=== PATIENT | male | born 1975 ===

== ENCOUNTER 2017-09-09 15:35 | Emergency (ER) | payer MEDICAID ==
[2017-09-09 16:32] LABS: Basophils # (Auto) 0.1 K/mm3 (0.0-0.1); Basophils % (Auto) 0.7 % (0.0-1.8); Eosinophils # (Auto) 0.5 K/mm3 (0.0-0.4); Eosinophils % (Auto) 4.8 % (0.0-4.3); Hematocrit 40.9 % (35.5-45.6); Hemoglobin 13.5 gm/dl (11.8-15.2); Lymphocytes # (Auto) 3.5 K/mm3 (1.2-5.4); Lymphocytes % (Auto) 36.3 % (13.4-35.0); Mean Corpuscular HGB Conc 33 % (32-34); Mean Corpuscular Hemoglobin 32 pg (28-32); Mean Corpuscular Volume 97 fl (84-94); Monocytes # (Auto) 1.1 K/mm3 (0.0-0.8); Monocytes % (Auto) 11.8 % (0.0-7.3); Platelet Count 181 K/mm3 (140-440); Red Blood Count 4.24 M/mm3 (3.65-5.03); Red Cell Distribution Width 13.8 % (13.2-15.2)
[2017-09-09 16:51] LABS: BUN/Creatinine Ratio 17; Blood Urea Nitrogen 17 mg/dL (9-20); Calcium 8.8 mg/dL (8.4-10.2); Hemolysis Index 8
[2017-09-09 16:51] LABS: Bilirubin,Urine NEG (Negative); Blood,Urine NEG (Negative); Color,Urine Yellow (Yellow); Protein,Urine <15 mg/dL mg/dL (Negative); Urobilinogen,Urine < 2.0 mg/dL (<2.0); WBC,Urine < 1.0 /HPF (0.0-6.0)
[2017-09-09 17:14] LABS: Amphetamine Screen,Urine PRESUMPTIVE NEGATIVE; Benzodiazepines Screen,Urine PRESUMPTIVE NEGATIVE; Cannabinoid Screen,Urine PRESUMPTIVE NEGATIVE; Cocaine Screen,Urine PRESUMPTIVE NEGATIVE; Opiate Screen,Urine PRESUMPTIVE NEGATIVE
[2017-09-09 17:27] LABS: Methadone Screen,Urine PRESUMPTIVE POSITIVE
[2017-09-09] MEDS ORDERED: ATIVAN PO ONE (17:58)
[2017-09-09] MEDS ORDERED: NORCO 5/325 PO ONE (17:58)
--- NOTE | 2017-09-09 20:12 | Emergency Department Report ---
ED Psych HPI - General Chief Complaint: Psych Stated Complaint: MH/1013 Time Seen by Provider: 09/09/17 16:26 Source: patient Mode of arrival: Ambulatory - History of Present Illness Initial Comments: Patient is a 41-year-old male who is presenting with anxiety and suicidal ideations. Patient states before arrival he was feeling very anxious and was having thoughts of hanging himself. Patient was sent in for evaluation. The patient is here he stated that he no longer feels suicidal but is very anxious and would like to be placed in a treatment facility. Patient also is complaining of aching chronic pain in the neck secondary to spinal stenosis and as well as in his legs secondary to chronic injury. His pains or 8 out 10 in severity according to the patient but are chronic. Patient denies any homicidal or suicidal ideations at this time. - Related Data Allergies Allergy/AdvReac Type Severity Reaction Status Date / Time Penicillins Allergy Rash Verified 09/09/17 15:49 ED Review of Systems ROS: Stated complaint: MH/1013 Other details as noted in HPI Comment: All other systems reviewed and negative ED Past Medical Hx - Past Medical History Previous Medical History?: Yes Additional medical history: cervical spine stenosis, - Social History Smoking Status: Current Every Day Smoker Substance Use Type: None ED Physical Exam - General Limitations: No Limitations General appearance: alert, in no apparent distress - Head Head exam: Present: atraumatic, normocephalic - Eye Eye exam: Present: normal appearance - ENT ENT exam: Present: mucous membranes moist - Neck Neck exam: Present: normal inspection - Respiratory Respiratory exam: Present: normal lung sounds bilaterally. Absent: respiratory distress, wheezes, rales, rhonchi - Cardiovascular Cardiovascular Exam: Present: regular rate, normal rhythm. Absent: systolic murmur, diastolic murmur, rubs, gallop - GI/Abdominal GI/Abdominal exam: Present: soft, normal bowel sounds - Rectal Rectal exam: Present: deferred - Extremities Exam Extremities exam: Present: normal inspection - Back Exam Back exam: Present: normal inspection - Neurological Exam Neurological exam: Present: alert, oriented X3 - Psychiatric Psychiatric exam: Present: normal affect, normal mood - Skin Skin exam: Present: warm, dry, intact, normal color. Absent: rash ED Course Vital Signs 09/09/17 09/09/17 15:56 16:12 Temperature 98.6 F Pulse Rate 92 H Respiratory 18 18 Rate Blood Pressure 109/62 [Left] O2 Sat by Pulse 96 Oximetry ED Medical Decision Making - Lab Data Result diagrams: 09/09/17 16:00 09/09/17 16:00 Lab Results 09/09/17 09/09/17 09/09/17 Range/Units 16:00 16:00 16:00 WBC (4.5-11.0) K/mm3 RBC (3.65-5.03) M/mm3 Hgb (11.8-15.2) gm/dl Hct (35.5-45.6) % MCV (84-94) fl MCH (28-32) pg MCHC (32-34) % RDW (13.2-15.2) % Plt Count (140-440) K/mm3 Lymph % (Auto) (13.4-35.0) % [place] % (Auto) (0.0-7.3) % Eos % (Auto) (0.0-4.3) % Baso % (Auto) (0.0-1.8) % Lymph # (1.2-5.4) K/mm3 [place] # (0.0-0.8) K/mm3 Eos # (0.0-0.4) K/mm3 Baso # (0.0-0.1) K/mm3 Seg Neutrophils % (40.0-70.0) % Seg Neutrophils # (1.8-7.7) K/mm3 Sodium 138 (137-145) mmol/L Potassium 4.3 (3.6-5.0) mmol/L Chloride 96.7 L (98-107) mmol/L Carbon Dioxide 30 (22-30) mmol/L Anion Gap 16 mmol/L BUN 17 (9-20) mg/dL Creatinine 1.0 (0.8-1.5) mg/dL Estimated GFR > 60 ml/min BUN/Creatinine Ratio 17 % Glucose 65 L (75-100) mg/dL Calcium 8.8 (8.4-10.2) mg/dL Urine Color (Yellow) Urine Turbidity (Clear) Urine pH (5.0-7.0) Ur Specific [place] (1.003-1.030) Urine Protein (Negative) mg/dL Urine Glucose (UA) (Negative) mg/dL Urine Ketones (Negative) mg/dL Urine Blood (Negative) Urine Nitrite (Negative) Urine Bilirubin (Negative) Urine Urobilinogen (<2.0) mg/dL Ur Leukocyte Esterase (Negative) Urine WBC (Auto) (0.0-6.0) /HPF Urine RBC (Auto) (0.0-6.0) /HPF Salicylates < 0.3 L (2.8-20.0) mg/dL Urine Opiates Screen Urine Methadone Screen Acetaminophen < 5.0 L (10.0-30.0) ug/mL Ur Barbiturates Screen Ur Phencyclidine Scrn Ur Amphetamines Screen U Benzodiazepines Scrn Urine Cocaine Screen U Marijuana (THC) Screen Drugs of Abuse Note Plasma/Serum Alcohol (0-0.07) % 09/09/17 09/09/17 09/09/17 Range/Units 16:00 16:00 16:04 WBC 9.5 (4.5-11.0) K/mm3 RBC 4.24 (3.65-5.03) M/mm3 Hgb 13.5 (11.8-15.2) gm/dl Hct 40.9 (35.5-45.6) % MCV 97 H (84-94) fl MCH 32 (28-32) pg MCHC 33 (32-34) % RDW 13.8 (13.2-15.2) % Plt Count 181 (140-440) K/mm3 Lymph % (Auto) 36.3 H (13.4-35.0) % [place] % (Auto) 11.8 H (0.0-7.3) % Eos % (Auto) 4.8 H (0.0-4.3) % Baso % (Auto) 0.7 (0.0-1.8) % Lymph # 3.5 (1.2-5.4) K/mm3 [place] # 1.1 H (0.0-0.8) K/mm3 Eos # 0.5 H (0.0-0.4) K/mm3 Baso # 0.1 (0.0-0.1) K/mm3 Seg Neutrophils % 46.4 (40.0-70.0) % Seg Neutrophils # 4.4 (1.8-7.7) K/mm3 Sodium (137-145) mmol/L Potassium (3.6-5.0) mmol/L Chloride (98-107) mmol/L Carbon Dioxide (22-30) mmol/L Anion Gap mmol/L BUN (9-20) mg/dL Creatinine (0.8-1.5) mg/dL Estimated GFR ml/min BUN/Creatinine Ratio % Glucose (75-100) mg/dL Calcium (8.4-10.2) mg/dL Urine Color Yellow (Yellow) Urine Turbidity Clear (Clear) Urine pH 6.0 (5.0-7.0) Ur Specific [place] 1.011 (1.003-1.030) Urine Protein <15 mg/dl (Negative) mg/dL Urine Glucose (UA) Neg (Negative) mg/dL Urine Ketones Neg (Negative) mg/dL Urine Blood Neg (Negative) Urine Nitrite Neg (Negative) Urine Bilirubin Neg (Negative) Urine Urobilinogen < 2.0 (<2.0) mg/dL Ur Leukocyte Esterase Neg (Negative) Urine WBC (Auto) < 1.0 (0.0-6.0) /HPF Urine RBC (Auto) 1.0 (0.0-6.0) /HPF Salicylates (2.8-20.0) mg/dL Urine Opiates Screen Urine Methadone Screen Acetaminophen (10.0-30.0) ug/mL Ur Barbiturates Screen Ur Phencyclidine Scrn Ur Amphetamines Screen U Benzodiazepines Scrn Urine Cocaine Screen U Marijuana (THC) Screen Drugs of Abuse Note Plasma/Serum Alcohol < 0.01 (0-0.07) % 09/09/17 Range/Units 16:04 WBC (4.5-11.0) K/mm3 RBC (3.65-5.03) M/mm3 Hgb (11.8-15.2) gm/dl Hct (35.5-45.6) % MCV (84-94) fl MCH (28-32) pg MCHC (32-34) % RDW (13.2-15.2) % Plt Count (140-440) K/mm3 Lymph % (Auto) (13.4-35.0) % [place] % (Auto) (0.0-7.3) % Eos % (Auto) (0.0-4.3) % Baso % (Auto) (0.0-1.8) % Lymph # (1.2-5.4) K/mm3 [place] # (0.0-0.8) K/mm3 Eos # (0.0-0.4) K/mm3 Baso # (0.0-0.1) K/mm3 Seg Neutrophils % (40.0-70.0) % Seg Neutrophils # (1.8-7.7) K/mm3 Sodium (137-145) mmol/L Potassium (3.6-5.0) mmol/L Chloride (98-107) mmol/L Carbon Dioxide (22-30) mmol/L Anion Gap mmol/L BUN (9-20) mg/dL Creatinine (0.8-1.5) mg/dL Estimated GFR ml/min BUN/Creatinine Ratio % Glucose (75-100) mg/dL Calcium (8.4-10.2) mg/dL Urine Color (Yellow) Urine Turbidity (Clear) Urine pH (5.0-7.0) Ur Specific [place] (1.003-1.030) Urine Protein (Negative) mg/dL Urine Glucose (UA) (Negative) mg/dL Urine Ketones (Negative) mg/dL Urine Blood (Negative) Urine Nitrite (Negative) Urine Bilirubin (Negative) Urine Urobilinogen (<2.0) mg/dL Ur Leukocyte Esterase (Negative) Urine WBC (Auto) (0.0-6.0) /HPF Urine RBC (Auto) (0.0-6.0) /HPF Salicylates (2.8-20.0) mg/dL Urine Opiates Screen Presumptive negative Urine Methadone Screen Presumptive positive Acetaminophen (10.0-30.0) ug/mL Ur Barbiturates Screen Presumptive negative Ur Phencyclidine Scrn Presumptive negative Ur Amphetamines Screen Presumptive negative U Benzodiazepines Scrn Presumptive negative Urine Cocaine Screen Presumptive negative U Marijuana (THC) Screen Presumptive negative Drugs of Abuse Note Disclamer Plasma/Serum Alcohol (0-0.07) % - Medical Decision Making Patient is a 41-year-old male who is presenting with chronic pain as well as anxiety and feels as though he needs to go inpatient for psych facility. Patient is voluntary at this time so therefore a 1013 has not been initiated. Patient will be assessed by the mobile assessment team. Patient was assessed and was deemed to be a harm to himself. Patient is stating now assessment that he BEEN wanting to run out in traffic and if he leaves he is going to kill himself. Patient placed on 1013 is awaiting placement Critical care attestation.: If time is entered above; I have spent that time in minutes in the direct care of this critically ill patient, excluding procedure time. ED Disposition Clinical Impression: Suicidal ideation Disposition: DC/TX-65 PSY HOSP/PSY UNIT Is pt being admited?: No Does the pt Need Aspirin: No Condition: Stable
[2017-09-10] MEDS ORDERED: ATIVAN PO ONE (10:20)
[2017-09-10] MEDS ORDERED: NORCO 5/325 PO ONE (10:21)
[2017-09-11] MEDS ORDERED: VISTARIL PO ONE (13:02)
[2017-09-11] MEDS ORDERED: MOTRIN PO ONE (13:03)
--- NOTE | 2017-09-11 14:55 | Consultation ---
<JEFFERSON ABDUL - Last Filed: 09/11/17 17:36> Medications and Allergies Allergies Allergy/AdvReac Type Severity Reaction Status Date / Time Penicillins Allergy Rash Verified 09/09/17 15:49 Home Medications Medication Instructions Recorded Confirmed Last Taken Type Unobtainable 09/09/17 09/09/17 Unknown History Mental Status Exam - Vital signs Last Vital Signs Temp 98.3 F 09/10/17 20:56 Pulse 76 09/10/17 20:56 Resp 16 09/10/17 20:56 BP 105/66 09/10/17 20:56 Pulse Ox 97 09/10/17 20:56 Results Result Diagrams: 09/09/17 16:00 09/09/17 16:00 All other labs normal. <LOLIS HOLLIS - Last Filed: 09/11/17 18:44> History of Present Illness - Reason for Consult Consult date: 09/11/17 Reason for consult: Initial Psychiatric Evaluation - Chief Complaint Chief complaint: " Hearing voices." - History of Present Psychiatric Illness Patient is a 41-year-old male who presents with anxiety and suicidal ideations. Patient states he has a past psychiatric history of psychosis and bipolar disorder. Diagnosed at [facility] one month ago. Currently, patient states I am here for auditory hallucinations. The voices are saying "just do it. Go ahead and finish it." Patient reports that the voices are constant. Today, patient reports increase anxiety, good energy, good appetite, decreased sleep, and sad mood. Patient endorses paranoid thoughts. He verbalizes that he believes others are out to harm him. He endorses suicidal ideations with a plan to jump in front of the big truck. He denies homicidal ideation. He reports being easily irritated/agitated. Symptoms have been present times one month. Current medications: Patient reports no current medications. Past psychiatric history: Bipolar (), Psychosis (); one previous inpatient hospitalization ([facility]); no previous suicide attempts; no outpatient psychiatrist, [facility], or rehabilitation. Patient reports, prior to coming to the hospital he was seen at the [facility]. Per patient the [facility] referred patient to the emergency room. Past psychiatric medication trials: Paxil- ineffective, Depakote-ineffective, Risperdal- "low blood pressure" History of trauma/abuse: Patient denies history of sexual, physical, or mental abuse. Drugs/alcohol abuse history: Patient denies history of substance abuse. UDS positive for methadone. Social history: Seventh grade; disability-approximately $750; single; no children; poor support system. Family history: Patient denies family history of psychiatric/substance abuse. Mental Status Exam - Vital signs Last Vital Signs Temp 98.3 F 09/10/17 20:56 Pulse 76 09/10/17 20:56 Resp 16 09/10/17 20:56 BP 105/66 09/10/17 20:56 Pulse Ox 97 09/10/17 20:56 - Exam Narrative exam: Mental Status Exam: Gen. appearance: Hospital gown Behavior: Cooperative Sensorium: Distracted Eye Contact: Intermittent Psychomotor and musculoskeletal activity: Ambulatory Mood: Anxious, depressed Affect: Constricted Speech/language: Rapid Thought processes: Tangential Thought content: Paranoid Perception: Auditory hallucinations and visual hallucinations Suicidal ideation/plan: + With the plan to jump in front of a moving bus, take a lot of pills, or slitting wrists Homicidal ideation/plan: Patient denies Judgment: Poor Insight: Poor Results Result Diagrams: 09/09/17 16:00 09/09/17 16:00 All other labs normal. Assessment and Plan Assessment and plan: Impression: Patient is a 41-year-old male who presents with constant auditory hallucinations, suicidal ideations, and anxiety. He has a PPHx of Psychosis and Bipolar Disorder. Today he presents anxious and depressed with psychosis (auditory hallucinations and paranoia). Patient is suicidal with a plan to jump in front of a big truck. He denies HI. UDS positive for methadone. DDx: Psychosis Unspecified r/o Bipolar Disorder with psychotic features r/o Schizoaffective Disorder, Bipolar type Recommendations/plan: 1. Will continue 1013 and reassess in 24 hours. 2. Will begin Zyprexa 5 mg by mouth daily at bedtime for mood and psychosis. 3. Will begin Vistaril 25 mg by mouth 3 times a day for anxiety. 4. Educated patient on the metabolic side effects of medications. 5. Will monitor mood, sleep, appetite, compliance, and side effects. 6. Will place on [facility] protocol for methadone withdrawl.
[2017-09-11] MEDS ORDERED: HABITROL TD ONE (18:00)
[2017-09-12] MEDS: VISTARIL PO SCH ×3 (09:20→21:55)
--- NOTE | 2017-09-12 12:40 | Progress Note ---
Subjective - Reason for Consult Consult date: 09/12/17 Reason for consult: Psychiatry Follow-up - Chief Complaint Chief complaint: "I still hear the voices" 41-year-old male who presents with anxiety and suicidal ideations. Today the patient is calm and cooperative during the assessment. He stated that the voices he is experiencing is "overwhelming." He stated that he want them to stop. He stated that the voices are telling him to kill himself. He endorses SI' s with a plan to walk into ongoing traffic to end his life. He denies HI's and VH's. He denies taking methadone, but he was positive for the medication. He stated, "I take other pain pills for my back." He denies any side effects of his medications. Mental Status Exam - Vital signs Last Vital Signs Temp 97.7 F 09/12/17 10:00 Pulse 68 09/12/17 10:00 Resp 16 09/12/17 10:00 BP 110/62 09/12/17 10:00 Pulse Ox 95 09/12/17 10:00 - Exam Narrative exam: MSE: Appearance: calm, cooperative Behavior: regular eye contact Speech: regular rate with a loud tone Mood: "okay" Affect: congruent to mood Thought Process: circumstantial Thought Content: denies HI's and VH's Motor Activity: ambulatory Cognition: A/O x 3 Insight: variable Judgment: variable Assessment and Plan Impression: Unspecified Psychosis. Hx of Anxiety per the patient. Today the patient is calm and cooperative during the assessment. The patient is positive for methadone. No acute withdrawals noted (opioid). The patient endorses SI's with a plan. DDx: R/O Bipolar DO, MDD with psychosis, Schizoaffective DO Recommendation/Plan: Continue 1013 with placement to inpatient psy services. Continue Zyprexa 5 mg PO HS for psychosis and Vistaril 25 mg PO TID for anxiety. Discussed possible metabolic side effects of Zyprexa with patient.
[2017-09-12] MEDS: ATIVAN IM PRN (15:55)
[2017-09-13] MEDS: VISTARIL PO SCH ×3 (09:46→20:02)
[2017-09-13] MEDS: ATIVAN IM PRN (16:11)
--- NOTE | 2017-09-13 16:51 | Progress Note ---
Subjective - Reason for Consult Consult date: 09/13/17 Reason for consult: Psychiatry Follow-up - Chief Complaint Chief complaint: "The voices" 41-year-old male who presents with anxiety and suicidal ideations. Today the patient is calm and cooperative during the assessment. He stated that the voices "driving" him crazy. He continue to endorse SI's. He stated that he want to get well "mentally." He denies HI's and VH's. He denies any side effects of his medications. Mental Status Exam - Vital signs Last Vital Signs Temp 97.3 F L 09/13/17 03:00 Pulse 81 09/13/17 03:00 Resp 18 09/13/17 03:00 BP 112/66 09/13/17 03:00 Pulse Ox 98 09/13/17 03:00 - Exam Narrative exam: MSE: Appearance: calm, cooperative Behavior: regular eye contact Speech: regular rate with a loud tone Mood: "okay" Affect: congruent to mood Thought Process: circumstantial Thought Content: denies HI's and VH's Motor Activity: ambulatory Cognition: A/O x 3 Insight: variable Judgment: variable Assessment and Plan Impression: Unspecified Psychosis. Hx of Anxiety per the patient. Today the patient is calm and cooperative during the assessment. The patient is positive for methadone. No acute withdrawals noted (opioid). The patient endorses SI's with a plan. DDx: R/O Bipolar DO, MDD with psychosis, Schizoaffective DO Recommendation/Plan: Continue 1013 with placement to inpatient psy services. Increase Zyprexa to 10 mg PO HS for psychosis and continue Vistaril 25 mg PO TID for anxiety. Discussed possible metabolic side effects of Zyprexa with patient.
[2017-09-14] MEDS: VISTARIL PO SCH ×3 (07:54→21:23)
[2017-09-14] MEDS: ATIVAN IM PRN ×3 (11:04→23:58)
--- NOTE | 2017-09-14 13:49 | Progress Note ---
Subjective - Reason for Consult Consult date: 09/14/17 Reason for consult: Psychiatric Follow-up Evaluation - Chief Complaint Chief complaint: "The voices" 41-year-old male who presents with anxiety and suicidal ideations. Today the patient is calm and cooperative during the assessment. He stated that the voices "driving" him crazy. He continue to endorse SI's. He stated that he want to get well "mentally." He denies HI's and VH's. He denies any side effects of his medications. Mental Status Exam - Vital signs Last Vital Signs Temp 97.8 F 09/14/17 09:43 Pulse 88 09/14/17 12:51 Resp 18 09/14/17 12:51 BP 123/73 09/14/17 12:51 Pulse Ox 100 09/14/17 12:51 - Exam Narrative exam: Mental Status Exam: Gen. appearance: Hospital gown Behavior: Cooperative Sensorium: Distracted Eye Contact: Intermittent Psychomotor and musculoskeletal activity: Ambulatory Mood: Anxious, depressed Affect: Constricted Speech/language: Rapid Thought processes: Tangential Thought content: Paranoid Perception: Auditory hallucinations and visual hallucinations Suicidal ideation/plan: + With the plan to jump in front of a moving bus, take a lot of pills, or slitting wrists Homicidal ideation/plan: Patient denies Judgment: Poor Insight: Poor Assessment and Plan Impression: Unspecified Psychosis. Hx of Anxiety per the patient. Today the patient is calm and cooperative during the assessment. The patient is positive for methadone. No acute withdrawals noted (opioid). The patient endorses SI's with a plan. DDx: R/O Bipolar DO, MDD with psychosis, Schizoaffective DO Recommendation/Plan: 1. Continue 1013 with placement to inpatient psy services. 2. Continue Zyprexa to 10 mg PO HS for psychosis and continue Vistaril 25 mg PO TID for anxiety. Discussed possible metabolic side effects of Zyprexa with patient.
[2017-09-14] MEDS ORDERED: HABITROL TD ONE (20:25)
[2017-09-15 08:41] VITALS: BP 125/74
--- NOTE | 2017-09-15 10:37 | Progress Note ---
Subjective - Reason for Consult Consult date: 09/15/17 Reason for consult: Psychiatry Follow-up - Chief Complaint Chief complaint: "I can't take it" 41-year-old male who presents with anxiety and suicidal ideations. Today the patient is calm and cooperative during the assessment. He continue to endorse SI's with a plan. He stated that the voices are still active. He was informed that he was accepted at [facility], he stated, "I need the help." He denies HI's and VH's. He denies any side effects of medications. Mental Status Exam - Vital signs Last Vital Signs Temp 97.8 F 09/15/17 08:41 Pulse 89 09/15/17 08:41 Resp 16 09/15/17 08:41 BP 125/74 09/15/17 08:41 Pulse Ox 100 09/15/17 08:41 - Exam Narrative exam: MSE: Appearance: calm, cooperative Behavior: regular eye contact Speech: regular rate and tone Mood: "okay" Affect: congruent to mood Thought Process: circumstantial Thought Content: denies HI's and VH's Motor Activity: ambulatory Cognition: A/O x 3 Insight: variable Judgment: variable Assessment and Plan Impression: Unspecified Psychosis. Hx of Anxiety per the patient. Today the patient is calm and cooperative during the assessment. The patient is positive for methadone. No acute withdrawals noted (opioid). The patient endorses SI's with a plan. DDx: R/O Bipolar DO, MDD with psychosis, Schizoaffective DO Recommendation/Plan: Continue 1013 with placement to [facility] pending transport time. Continue Zyprexa to 10 mg PO HS for psychosis and Vistaril 25 mg PO TID for anxiety. Discussed possible metabolic side effects of Zyprexa with patient.
[2017-09-15] MEDS: VISTARIL PO SCH ×2 (12:06→15:09)
== END 2017-09-15 17:12 ==
LOC: EEVIPCON 15:35 → ED 15:35
DX: F41.9 Anxiety disorder, unspecified (principal); R45.851 Suicidal ideations; F17.200 Nicotine dependence, unspecified, uncomplicated; Z88.0 Allergy status to penicillin
CPT/HCPCS: 36415; 80048; 80307; 81001; 85025; 96372; 99285; G0480; J2060; 80320; Q0177